=== PATIENT | female | born 1955 | race Caucasian/White ===

== ENCOUNTER 2021-11-26 11:34 | Inpatient (IN) ==
[2021-11-26] MEDS ORDERED: ONDANSETRON 4 MG/2 ML VIAL IV STA (12:43)
[2021-11-26] MEDS ORDERED: SODIUM CHLORIDE 0.9% 500 ML IV STA (12:43)
[2021-11-26] MEDS ORDERED: HYDROmorphone 1 MG/1 ML SYRINGE IV STA (12:43)
[2021-11-26 13:05] LABS: Basophils # 0.1 10*3/uL (0.0-0.2); Basophils % 0.4 % (0.0-0.8); Eosinophils # 0.1 10*3/uL (0.0-0.87); Eosinophils % 0.4 % (0.00-10.9); Hematocrit 41.3 VOL% (35.7-47.0); Hemoglobin 13.6 GM/DL (12.0-16.0); Immature Granulocytes % 2.6 %; Immature Granulocytes Absolute 0.39 #; Lymphocytes # 2.2 10*3/uL (1.4-4.0); Lymphocytes % 14.8 % (21.3-54.2); Mean Corpuscular HGB Conc 32.9 GM/DL (32-36); Mean Corpuscular Volume 93.2 FL (87-102); Mean Platelet Volume 8.9 FL (9.6-12.0); Monocytes # 0.9 10*3/uL (0.11-0.8); Monocytes % 6.1 % (1.7-12.7); Neutrophils % 75.7 % (38.7-73.9); Platelet Count 338 T/CUMM (130-400); Red Blood Count 4.43 MC/CUMM (3.8-5.5); Red Cell Distribution Width 13.2 % (9.3-17.3); White Blood Count 14.9 T/CUMM (4-12)
[2021-11-26 13:14] LABS: Bilirubin,Urine Negative (Negative); Blood, Urine Negative (Negative); Glucose,Urine (UA) Negative (Negative); Ketones,Urine Negative (Negative); Mucus,Urine Occasional /LPF (Occasional); Nitrite,Urine Negative (Negative); Protein,Urine Negative (Negative); RBC,Urine 2 /HPF (0-4); Squamous Epithelial Cell,Urine Occasional /HPF (0-10); Urine Appearance Clear (Clear); Urine Color Yellow (Yellow); Urine Specific Gravity 1.025 (1.001-1.035); Urine Urobilinogen 0.2 eU/dL (<2.0)
[2021-11-26 13:25] LABS: Albumin 3.4 G/DL (3.4-5.0); Bilirubin,Total 0.7 MG/DL (0.20-1.00); Calcium 9.5 MG/DL (8.5-10.1); Osmolality,Calculated 276.8 MOS/KG (273-304); Potassium 3.7 MMOL/L (3.5-5.1); Total Protein 7.6 G/DL (6.4-8.2)
[2021-11-26] MEDS ORDERED: GLUCAGON 1 MG VIAL IM PRN (15:31)
[2021-11-26] MEDS ORDERED: ACETAMINOPHEN 325 MG TABLET PO PRN (15:31)
[2021-11-26] MEDS ORDERED: HYDROmorphone 1 MG/1 ML SYRINGE IV PRN (15:37)
[2021-11-26] MEDS ORDERED: DEXTROSE 10% 250 ML BAG IV PRN (15:44)
[2021-11-26] MEDS ORDERED: ERTAPENEM 1,000 MG in SODIUM CHLORIDE 0.9% 100 ML IV SCH (16:00)
[2021-11-26] MEDS: ERTAPENEM 1,000 MG in SODIUM CHLORIDE 0.9% 100 ML IV SCH (16:08)
[2021-11-26] MEDS: ONDANSETRON 4 MG/2 ML VIAL IV PRN (16:09)
[2021-11-26] MEDS ORDERED: CLINDAMYCIN INJ 900 MG/50 ML PREMIX IV ONE (17:55)
[2021-11-26] MEDS: LACTATED RINGERS 1,000 ML IV SCH (18:36)
[2021-11-26] MEDS: PANTOPRAZOLE 40 MG VIAL IV SCH (21:37)
[2021-11-26] MEDS: ROSUVASTATIN 10 MG TABLET PO SCH (21:37)
[2021-11-27] MEDS: ONDANSETRON 4 MG/2 ML VIAL IV PRN ×3 (00:27→12:42)
[2021-11-27] MEDS: LACTATED RINGERS 1,000 ML IV SCH ×3 (01:20→07:38)
[2021-11-27 05:37] LABS: Basophils # 0.1 10*3/uL (0.0-0.2); Basophils % 0.7 % (0.0-0.8); Eosinophils # 0.1 10*3/uL (0.0-0.87); Eosinophils % 1.2 % (0.00-10.9); Hematocrit 34.3 VOL% (35.7-47.0); Hemoglobin 11.1 GM/DL (12.0-16.0); Immature Granulocytes Absolute 0.39 #; Lymphocytes # 2.4 10*3/uL (1.4-4.0); Lymphocytes % 24.7 % (21.3-54.2); Mean Corpuscular HGB Conc 32.4 GM/DL (32-36); Mean Corpuscular Volume 96.3 FL (87-102); Mean Platelet Volume 9.2 FL (9.6-12.0); Monocytes # 0.9 10*3/uL (0.11-0.8); Neutrophils % 60.4 % (38.7-73.9); Platelet Count 233 T/CUMM (130-400); Red Blood Count 3.56 MC/CUMM (3.8-5.5); Red Cell Distribution Width 13.2 % (9.3-17.3); White Blood Count 9.9 T/CUMM (4-12)
[2021-11-27 05:58] LABS: Albumin 2.4 G/DL (3.4-5.0); Bilirubin,Total 0.7 MG/DL (0.20-1.00); Calcium 8.6 MG/DL (8.5-10.1); Osmolality,Calculated 277.5 MOS/KG (273-304); Potassium 4.2 MMOL/L (3.5-5.1); Total Protein 5.9 G/DL (6.4-8.2)
[2021-11-27] MEDS ORDERED: lisinopriL 20 MG TABLET PO SCH (09:00)
[2021-11-27] MEDS: FLUTICASONE 50 MCG NASAL SPRAY 16 GM BOTTLE BOTH NARES SCH (09:22)
[2021-11-27] MEDS: PANTOPRAZOLE 40 MG VIAL IV SCH ×2 (09:23→20:21)
[2021-11-27] MEDS: ASCORBIC ACID 500 MG TABLET PO SCH (09:26)
[2021-11-27] MEDS: CALCIUM (CARBONATE)/VITAMIN D 600 MG-400 UNIT TABLET PO SCH (09:26)
[2021-11-27] MEDS ORDERED: HYDROmorphone 1 MG/1 ML SYRINGE IV PRN (15:12)
[2021-11-27] MEDS ORDERED: PROMETHAZINE 25 MG/1 ML VIAL IM PRN (15:14)
[2021-11-27] MEDS ORDERED: MEPERIDINE 25 MG/1 ML VIAL ONE (16:18)
[2021-11-27] MEDS ORDERED: LIDOCAINE 2% 5 ML VIAL ONE (16:23)
[2021-11-27] MEDS ORDERED: SUCCINYLCHOLINE 200 MG/10 ML VIAL ONE (16:23)
[2021-11-27] MEDS ORDERED: MIDAZOLAM 2 MG/2 ML VIAL ONE (16:23)
[2021-11-27] MEDS ORDERED: fentaNYL 100 MCG/2 ML VIAL ONE ×2 (16:23→17:19)
[2021-11-27] MEDS ORDERED: propofoL 200 MG/20 ML VIAL IV ONE (16:23)
[2021-11-27] MEDS ORDERED: ROCURONIUM 50 MG/5 ML VIAL IV ONE (16:23)
[2021-11-27] MEDS ORDERED: MEPERIDINE 25 MG/1 ML VIAL IV PRN ×2 (16:30→18:53)
[2021-11-27] MEDS ORDERED: ONDANSETRON 4 MG/2 ML VIAL IV PRN ×2 (16:30→18:53)
[2021-11-27] MEDS ORDERED: DEXAMETHASONE 4 MG/1 ML VIAL ONE (17:19)
[2021-11-27] MEDS ORDERED: DESFLURANE 1 UNIT/15 MINUTE INH ONE ×2 (17:19→17:24)
[2021-11-27] MEDS ORDERED: ceFAZolin 1,000 MG VIAL ONE (17:20)
[2021-11-27 17:51] LABS: Glucose,Urine (UA) Negative (Negative); Ketones,Urine 40 mg/dL (Negative); Mucus,Urine Occasional /LPF (Occasional); Protein,Urine Negative (Negative); Squamous Epithelial Cell,Urine Occasional /HPF (0-10); Urine Appearance Clear (Clear); Urine Color Yellow (Yellow); Urine Specific Gravity 1.015 (1.001-1.035)
[2021-11-27 17:52] LABS: Bilirubin,Urine Negative (Negative); Blood, Urine Negative (Negative); Nitrite,Urine Negative (Negative)
[2021-11-27] MEDS ORDERED: LACTATED RINGERS 1,000 ML IV ONE (17:54)
[2021-11-27] MEDS ORDERED: SUGAMMADEX 200 MG/2 ML VIAL IV ONE (18:14)
[2021-11-27] MEDS: ERTAPENEM 1,000 MG in SODIUM CHLORIDE 0.9% 100 ML IV SCH (18:23)
[2021-11-27] MEDS: HYDROmorphone 1 MG/1 ML SYRINGE IV PRN ×4 (18:50→22:41)
[2021-11-27] MEDS: ROSUVASTATIN 10 MG TABLET PO SCH (20:21)
[2021-11-27] MEDS ORDERED: ENOXAPARIN 40 MG/0.4 ML SYRINGE SUBCUT SCH (21:00)
[2021-11-28] MEDS: LACTATED RINGERS 1,000 ML IV SCH ×4 (00:17→16:40)
[2021-11-28] MEDS: HYDROmorphone 1 MG/1 ML SYRINGE IV PRN ×4 (02:10→16:20)
[2021-11-28 05:29] LABS: Basophils # 0.1 10*3/uL (0.0-0.2); Basophils % 0.3 % (0.0-0.8); Hematocrit 36.3 VOL% (35.7-47.0); Hemoglobin 11.9 GM/DL (12.0-16.0); Immature Granulocytes % 2.7 %; Immature Granulocytes Absolute 0.43 #; Lymphocytes # 1.1 10*3/uL (1.4-4.0); Mean Corpuscular HGB Conc 32.8 GM/DL (32-36); Mean Corpuscular Volume 94.8 FL (87-102); Mean Platelet Volume 8.7 FL (9.6-12.0); Monocytes # 0.7 10*3/uL (0.11-0.8); Monocytes % 4.3 % (1.7-12.7); Neutrophils % 85.7 % (38.7-73.9); Platelet Count 304 T/CUMM (130-400); Red Blood Count 3.83 MC/CUMM (3.8-5.5); Red Cell Distribution Width 13.1 % (9.3-17.3); White Blood Count 15.9 T/CUMM (4-12)
[2021-11-28 05:47] LABS: Albumin 2.6 G/DL (3.4-5.0); Bilirubin,Total 0.5 MG/DL (0.20-1.00); Calcium 8.8 MG/DL (8.5-10.1); Osmolality,Calculated 278.5 MOS/KG (273-304); Potassium 4.3 MMOL/L (3.5-5.1); Total Protein 6.2 G/DL (6.4-8.2)
[2021-11-28] MEDS: CALCIUM (CARBONATE)/VITAMIN D 600 MG-400 UNIT TABLET PO SCH (08:25)
[2021-11-28] MEDS: ASCORBIC ACID 500 MG TABLET PO SCH (08:25)
[2021-11-28] MEDS: FLUTICASONE 50 MCG NASAL SPRAY 16 GM BOTTLE BOTH NARES SCH (08:36)
[2021-11-28] MEDS: PANTOPRAZOLE 40 MG VIAL IV SCH ×2 (08:37→20:14)
[2021-11-28] MEDS: ONDANSETRON 4 MG/2 ML VIAL IV PRN ×3 (10:39→20:17)
[2021-11-28] MEDS: METHOCARBAMOL INJ 750 MG in SODIUM CHLORIDE 0.9% 100 ML IV SCH ×2 (12:38→20:17)
[2021-11-28] MEDS: ERTAPENEM 1,000 MG in SODIUM CHLORIDE 0.9% 100 ML IV SCH (15:30)
[2021-11-28] MEDS: MELATONIN 3 MG TABLET PO SCH (20:18)
[2021-11-28] MEDS: ROSUVASTATIN 10 MG TABLET PO SCH (20:18)
[2021-11-29] MEDS: ONDANSETRON 4 MG/2 ML VIAL IV PRN ×4 (00:29→17:53)
[2021-11-29] MEDS: LACTATED RINGERS 1,000 ML IV SCH ×4 (00:46→18:16)
[2021-11-29] MEDS: HYDROmorphone 1 MG/1 ML SYRINGE IV PRN ×2 (00:46→05:35)
[2021-11-29] MEDS: METHOCARBAMOL INJ 750 MG in SODIUM CHLORIDE 0.9% 100 ML IV SCH ×3 (04:23→20:33)
[2021-11-29 05:45] LABS: Basophils # 0.1 10*3/uL (0.0-0.2); Basophils % 0.4 % (0.0-0.8); Eosinophils % 0.2 % (0.00-10.9); Hematocrit 37.6 VOL% (35.7-47.0); Hemoglobin 11.7 GM/DL (12.0-16.0); Immature Granulocytes % 3.4 %; Lymphocytes # 2.2 10*3/uL (1.4-4.0); Lymphocytes % 14.9 % (21.3-54.2); Mean Corpuscular HGB Conc 31.1 GM/DL (32-36); Mean Corpuscular Volume 97.7 FL (87-102); Mean Platelet Volume 8.9 FL (9.6-12.0); Monocytes % 6.9 % (1.7-12.7); Neutrophils % 74.2 % (38.7-73.9); Platelet Count 320 T/CUMM (130-400); Red Blood Count 3.85 MC/CUMM (3.8-5.5); Red Cell Distribution Width 13.2 % (9.3-17.3); White Blood Count 14.8 T/CUMM (4-12)
[2021-11-29 06:04] LABS: Albumin 2.5 G/DL (3.4-5.0); Bilirubin,Total 0.7 MG/DL (0.20-1.00); Osmolality,Calculated 276.7 MOS/KG (273-304); Potassium 4.2 MMOL/L (3.5-5.1); Total Protein 6.1 G/DL (6.4-8.2)
[2021-11-29] MEDS: PROMETHAZINE 25 MG/1 ML VIAL IM PRN (09:40)
[2021-11-29] MEDS: FLUTICASONE 50 MCG NASAL SPRAY 16 GM BOTTLE BOTH NARES SCH (10:54)
[2021-11-29] MEDS: CALCIUM (CARBONATE)/VITAMIN D 600 MG-400 UNIT TABLET PO SCH (10:54)
[2021-11-29] MEDS: PANTOPRAZOLE 40 MG VIAL IV SCH ×2 (10:54→20:33)
[2021-11-29] MEDS: ASCORBIC ACID 500 MG TABLET PO SCH (10:55)
[2021-11-29] MEDS: ERTAPENEM 1,000 MG in SODIUM CHLORIDE 0.9% 100 ML IV SCH (16:36)
[2021-11-29] MEDS: ROSUVASTATIN 10 MG TABLET PO SCH (20:32)
[2021-11-29] MEDS: MELATONIN 3 MG TABLET PO SCH (20:32)
[2021-11-30] MEDS: LACTATED RINGERS 1,000 ML IV SCH ×4 (00:32→14:38)
[2021-11-30] MEDS: METHOCARBAMOL INJ 750 MG in SODIUM CHLORIDE 0.9% 100 ML IV SCH ×3 (05:11→20:31)
[2021-11-30] MEDS: ONDANSETRON 4 MG/2 ML VIAL IV PRN ×2 (05:37→20:29)
[2021-11-30] MEDS: HYDROmorphone 1 MG/1 ML SYRINGE IV PRN ×2 (05:40→17:25)
[2021-11-30 05:53] LABS: Basophils # 0.1 10*3/uL (0.0-0.2); Basophils % 0.8 % (0.0-0.8); Eosinophils # 0.1 10*3/uL (0.0-0.87); Eosinophils % 0.9 % (0.00-10.9); Hematocrit 34.7 VOL% (35.7-47.0); Hemoglobin 11.2 GM/DL (12.0-16.0); Immature Granulocytes % 4.6 %; Lymphocytes # 2.6 10*3/uL (1.4-4.0); Lymphocytes % 16.7 % (21.3-54.2); Mean Corpuscular HGB Conc 32.3 GM/DL (32-36); Mean Corpuscular Volume 97.7 FL (87-102); Mean Platelet Volume 10.4 FL (9.6-12.0); Monocytes # 1.2 10*3/uL (0.11-0.8); Monocytes % 7.6 % (1.7-12.7); Neutrophils % 69.4 % (38.7-73.9); Platelet Count 242 T/CUMM (130-400); Red Blood Count 3.55 MC/CUMM (3.8-5.5); Red Cell Distribution Width 13.2 % (9.3-17.3); White Blood Count 15.3 T/CUMM (4-12)
[2021-11-30 06:02] LABS: Bilirubin,Total 0.7 MG/DL (0.20-1.00); Calcium 8.5 MG/DL (8.5-10.1); Osmolality,Calculated 262.7 MOS/KG (273-304); Potassium 4.6 MMOL/L (3.5-5.1); Total Protein 5.5 G/DL (6.4-8.2)
[2021-11-30 06:25] LABS: Eosinophils 1 % (0-10); Lymphocytes 12 % (20-55); Platelet Estimate Normal; Total Cells Counted 100
[2021-11-30] MEDS: PANTOPRAZOLE 40 MG VIAL IV SCH ×2 (09:34→20:31)
[2021-11-30] MEDS: SCOPOLAMINE 1.5 MG PATCH TRANSDERM SCH (09:35)
[2021-11-30] MEDS: ASCORBIC ACID 500 MG TABLET PO SCH (10:07)
[2021-11-30] MEDS: FLUTICASONE 50 MCG NASAL SPRAY 16 GM BOTTLE BOTH NARES SCH (10:07)
[2021-11-30] MEDS: CALCIUM (CARBONATE)/VITAMIN D 600 MG-400 UNIT TABLET PO SCH (10:07)
[2021-11-30] MEDS: ERTAPENEM 1,000 MG in SODIUM CHLORIDE 0.9% 100 ML IV SCH (16:55)
[2021-11-30] MEDS: MELATONIN 3 MG TABLET PO SCH (20:35)
[2021-11-30] MEDS: ROSUVASTATIN 10 MG TABLET PO SCH (20:35)
[2021-12-01] MEDS: LACTATED RINGERS 1,000 ML IV SCH (02:32)
[2021-12-01] MEDS: ONDANSETRON 4 MG/2 ML VIAL IV PRN (04:28)
[2021-12-01] MEDS: HYDROmorphone 1 MG/1 ML SYRINGE IV PRN (04:30)
[2021-12-01] MEDS: METHOCARBAMOL INJ 750 MG in SODIUM CHLORIDE 0.9% 100 ML IV SCH ×3 (04:31→21:52)
[2021-12-01 05:17] LABS: Basophils # 0.1 10*3/uL (0.0-0.2); Basophils % 0.8 % (0.0-0.8); Eosinophils # 0.4 10*3/uL (0.0-0.87); Eosinophils % 3.1 % (0.00-10.9); Hematocrit 32.7 VOL% (35.7-47.0); Hemoglobin 10.4 GM/DL (12.0-16.0); Immature Granulocytes % 5.5 %; Immature Granulocytes Absolute 0.69 #; Lymphocytes # 2.7 10*3/uL (1.4-4.0); Lymphocytes % 21.6 % (21.3-54.2); Mean Corpuscular HGB Conc 31.8 GM/DL (32-36); Mean Platelet Volume 8.5 FL (9.6-12.0); Monocytes # 0.9 10*3/uL (0.11-0.8); Monocytes % 7.4 % (1.7-12.7); Neutrophils % 61.6 % (38.7-73.9); Platelet Count 259 T/CUMM (130-400); Red Blood Count 3.37 MC/CUMM (3.8-5.5); Red Cell Distribution Width 13.1 % (9.3-17.3); White Blood Count 12.5 T/CUMM (4-12)
[2021-12-01 05:33] LABS: Albumin 2.4 G/DL (3.4-5.0); Bilirubin,Total 0.6 MG/DL (0.20-1.00); Calcium 8.6 MG/DL (8.5-10.1); Osmolality,Calculated 273.8 MOS/KG (273-304); Potassium 3.4 MMOL/L (3.5-5.1); Total Protein 5.5 G/DL (6.4-8.2)
[2021-12-01 06:07] LABS: Anisocytosis 1+; Band Neutrophils 5 % (0-10); Eosinophils 5 % (0-10); Lymphocytes 20 % (20-55); Metamyelocytes 4 %; Myelocytes 2 %; Platelet Estimate Normal; Total Cells Counted 100
[2021-12-01 06:08] LABS: Giant Platelets Few
[2021-12-01] MEDS ORDERED: POTASSIUM CHLORIDE 20 MEQ TABLET PO ONE (08:44)
[2021-12-01] MEDS: PANTOPRAZOLE 40 MG VIAL IV SCH ×2 (08:54→21:52)
[2021-12-01] MEDS: FLUTICASONE 50 MCG NASAL SPRAY 16 GM BOTTLE BOTH NARES SCH (09:35)
[2021-12-01] MEDS: ASCORBIC ACID 500 MG TABLET PO SCH (09:35)
[2021-12-01] MEDS: CALCIUM (CARBONATE)/VITAMIN D 600 MG-400 UNIT TABLET PO SCH (09:35)
[2021-12-01 10:36] LABS: Bilirubin,Urine Negative (Negative); Blood, Urine Negative (Negative); Glucose,Urine (UA) Negative (Negative); Ketones,Urine Trace mg/dL (Negative); Mucus,Urine Occasional /LPF (Occasional); Nitrite,Urine Negative (Negative); Protein,Urine Negative (Negative); RBC,Urine <1 /HPF (0-4); Squamous Epithelial Cell,Urine Occasional /HPF (0-10); Urine Appearance Clear (Clear); Urine Color Yellow (Yellow); Urine Urobilinogen 0.2 eU/dL (<2.0)
[2021-12-01] MEDS: POTASSIUM CHLORIDE RIDER 10 MEQ/100 ML PREMIX IV PRN ×3 (10:37→16:50)
[2021-12-01] MEDS: ERTAPENEM 1,000 MG in SODIUM CHLORIDE 0.9% 100 ML IV SCH (16:50)
[2021-12-01] MEDS: MELATONIN 3 MG TABLET PO SCH (21:51)
[2021-12-01] MEDS: ROSUVASTATIN 10 MG TABLET PO SCH (21:51)
[2021-12-02] MEDS: METHOCARBAMOL INJ 750 MG in SODIUM CHLORIDE 0.9% 100 ML IV SCH ×3 (04:55→20:47)
[2021-12-02 05:16] LABS: Basophils # 0.1 10*3/uL (0.0-0.2); Basophils % 0.6 % (0.0-0.8); Eosinophils # 0.3 10*3/uL (0.0-0.87); Eosinophils % 2.7 % (0.00-10.9); Hematocrit 30.7 VOL% (35.7-47.0); Hemoglobin 9.7 GM/DL (12.0-16.0); Immature Granulocytes % 5.1 %; Immature Granulocytes Absolute 0.55 #; Lymphocytes # 2.3 10*3/uL (1.4-4.0); Lymphocytes % 21.4 % (21.3-54.2); Mean Corpuscular HGB Conc 31.6 GM/DL (32-36); Mean Corpuscular Volume 96.8 FL (87-102); Mean Platelet Volume 8.9 FL (9.6-12.0); Monocytes # 0.8 10*3/uL (0.11-0.8); Monocytes % 7.5 % (1.7-12.7); Neutrophils % 62.7 % (38.7-73.9); Platelet Count 257 T/CUMM (130-400); Red Blood Count 3.17 MC/CUMM (3.8-5.5); Red Cell Distribution Width 13.1 % (9.3-17.3); White Blood Count 10.7 T/CUMM (4-12)
[2021-12-02 05:34] LABS: Calcium 8.4 MG/DL (8.5-10.1); Osmolality,Calculated 271.8 MOS/KG (273-304); Potassium 3.8 MMOL/L (3.5-5.1)
[2021-12-02 05:40] LABS: Band Neutrophils 1 % (0-10); Eosinophils 3 % (0-10); Lymphocytes 21 % (20-55); Platelet Estimate Adequate; Total Cells Counted 100
[2021-12-02] MEDS: PANTOPRAZOLE 40 MG VIAL IV SCH ×2 (08:02→20:48)
[2021-12-02] MEDS: FLUTICASONE 50 MCG NASAL SPRAY 16 GM BOTTLE BOTH NARES SCH (08:03)
[2021-12-02] MEDS: CALCIUM (CARBONATE)/VITAMIN D 600 MG-400 UNIT TABLET PO SCH (08:05)
[2021-12-02] MEDS: ASCORBIC ACID 500 MG TABLET PO SCH (08:06)
[2021-12-02] MEDS: ONDANSETRON 4 MG/2 ML VIAL IV PRN ×3 (09:58→20:48)
[2021-12-02] MEDS: PROMETHAZINE 25 MG/1 ML VIAL IM PRN ×2 (13:57→18:08)
[2021-12-02] MEDS: ERTAPENEM 1,000 MG in SODIUM CHLORIDE 0.9% 100 ML IV SCH (15:13)
[2021-12-02] MEDS ORDERED: oxyCODONE/ACETAMINOPHEN 5-325 MG TABLET PO PRN ×2 (16:07→16:12)
[2021-12-02] MEDS: ROSUVASTATIN 10 MG TABLET PO SCH (20:48)
[2021-12-02] MEDS: MELATONIN 3 MG TABLET PO SCH (20:48)
[2021-12-03] MEDS: METHOCARBAMOL INJ 750 MG in SODIUM CHLORIDE 0.9% 100 ML IV SCH ×3 (05:17→21:03)
[2021-12-03] MEDS: PANTOPRAZOLE 40 MG VIAL IV SCH ×2 (09:38→21:05)
[2021-12-03] MEDS: SCOPOLAMINE 1.5 MG PATCH TRANSDERM SCH (09:39)
[2021-12-03] MEDS: FLUTICASONE 50 MCG NASAL SPRAY 16 GM BOTTLE BOTH NARES SCH (10:07)
[2021-12-03] MEDS: CALCIUM (CARBONATE)/VITAMIN D 600 MG-400 UNIT TABLET PO SCH (10:07)
[2021-12-03] MEDS: ASCORBIC ACID 500 MG TABLET PO SCH (10:07)
[2021-12-03] MEDS: ERTAPENEM 1,000 MG in SODIUM CHLORIDE 0.9% 100 ML IV SCH (17:25)
[2021-12-03] MEDS: ONDANSETRON 4 MG/2 ML VIAL IV PRN ×2 (17:51→21:05)
[2021-12-03] MEDS: MELATONIN 3 MG TABLET PO SCH (21:03)
[2021-12-03] MEDS: ROSUVASTATIN 10 MG TABLET PO SCH (21:03)
[2021-12-04] MEDS: METHOCARBAMOL INJ 750 MG in SODIUM CHLORIDE 0.9% 100 ML IV SCH (04:17)
[2021-12-04 08:12] VITALS: BP 114/55
[2021-12-04] MEDS: PANTOPRAZOLE 40 MG VIAL IV SCH (09:44)
[2021-12-04] MEDS: CALCIUM (CARBONATE)/VITAMIN D 600 MG-400 UNIT TABLET PO SCH (09:49)
[2021-12-04] MEDS: FLUTICASONE 50 MCG NASAL SPRAY 16 GM BOTTLE BOTH NARES SCH (09:49)
[2021-12-04] MEDS: ASCORBIC ACID 500 MG TABLET PO SCH (09:50)
== END 2021-12-04 12:40 | disposition home or self-care (01) | DRG 330 ==
LOC: SUATTDRO → N.ED 11:34 → SUATTDRO 15:31 → N.EDINP 15:31 → N.3E 17:18
PROVIDERS: ADMIT Internal Medicine; ATTEND Internal Medicine